=== PATIENT | male | born 1955 | race Caucasian/White ===

== ENCOUNTER → 2016-08-26 | Outpatient (REF) | payer OTHER | LOC: M LAB REF 12:56 | PROVIDERS: ATTEND Internal Medicine Cardiovascular Disease | DX: I25.9 Chronic ischemic heart disease, unspecified (principal); E78.5 Hyperlipidemia, unspecified ==

== ENCOUNTER → 2017-12-23 | Outpatient (REF) | payer OTHER | LOC: M LAB REF 12-24 11:43 | DX: L03.039 Cellulitis of unspecified toe (principal) ==

== ENCOUNTER → 2018-01-28 | Outpatient (REF) | payer OTHER ==
[2018-01-28 18:24] LABS: TOTAL PROTEIN 7.1 GM/DL (6.4-8.2)
[2018-01-28 18:39] LABS: URINE TOTAL PROTEIN 29.7 MG/DL (0-12)
[2018-01-30 11:28] LABS: ALBUMIN 4.34 GM/DL (3.29-5.55); ALBUMIN % 61.1 % (55.8-66.1); ALPHA-1-GLOBULIN % 3.6 % (2.9-4.9); ALPHA-1-GLOBULINS 0.26 GM/DL (0.17-0.41); ALPHA-2-GLOBULINS % 9.8 % (7.1-11.8); BETA-1-GLOBULINS 0.48 GM/DL (0.28-0.60); BETA-1-GLOBULINS % 6.7 % (4.7-7.2); BETA-2-GLOBULINS 0.46 GM/DL (0.19-0.55); BETA-2-GLOBULINS % 6.5 % (3.2-6.5); GAMMA GLOBULIN % 12.3 % (11.1-18.8); GAMMA GLOBULINS 0.87 GM/DL (0.65-1.58)
[2018-01-30 11:51] LABS: IMMUNOTYPING SERUM IGG ABNORMAL (NORMAL); IMMUNOTYPING SERUM KAPPA ABNORMAL (NORMAL)
[2018-01-30 13:33] LABS: UPEP INTERPRETATION NO M-SPIKE NOTED; URINE VOLUME RANDOM ML
[2018-01-31 00:58] LABS: FREE KAPPA LIGHT CHAINS SERUM 12.7 mg/L (3.3-19.4); FREE LAMBDA LIGHT CHAINS SERUM 12.1 mg/L (5.7-26.3); KAPPA/LAMBDA RATIO SERUM 1.05 (0.26-1.65)
== END ==
LOC: M LAB REF 17:10
DX: E83.52 Hypercalcemia (principal)
CPT/HCPCS: 84165

== ENCOUNTER → 2018-02-16 | Outpatient (REF) | payer OTHER ==
[~2018-02-16] MED LIST: ALLO100T PO; ASPI81TA85 PO; FENO160T10 PO; GLIP5TAB8 PO; LASI20TA PO; LISI-542 PO; METF500T13 PO; METO100T5 PO; METO50TA7 PO; NICO2LOZ MT; POTA20TA6 PO; SIMV5TAB4 PO; SIMVAS PO
[2018-02-19 14:18] LABS: UPEP INTERPRETATION NO M-SPIKE NOTED; URINE VOLUME 1750 ML
== END ==
LOC: M LAB REF 11:20
PROVIDERS: ATTEND Specialist
DX: R39.9 Unspecified symptoms and signs involving the genitourinary system (principal)